=== PATIENT | male | born 1970 | race Caucasian/White ===

== ENCOUNTER 2023-01-06 02:51 | Emergency (ER) | payer MEDICAID ==
[~2023-01-06] VITALS: Ht 175.3 cm; Wt 65.9 kg
[2023-01-06 04:39] VITALS: BP 112/64
== END 2023-01-06 04:40 | disposition home or self-care (01) ==
LOC: EMS 02:56
DX: M70.21 Olecranon bursitis, right elbow (principal); M25.561 Pain in right knee
CPT/HCPCS: 99283

== ENCOUNTER 2023-01-08 20:30 | Emergency (ER) | payer MEDICAID ==
[~2023-01-08] VITALS: Ht 175.3 cm; Wt 63.6 kg
[2023-01-08 23:00] VITALS: BP 118/62
== END 2023-01-08 23:11 | disposition home or self-care (01) ==
LOC: EMS 20:34
DX: S50.01XA Contusion of right elbow, initial encounter (principal); M70.21 Olecranon bursitis, right elbow; Z98.890 Other specified postprocedural states; Z88.0 Allergy status to penicillin; V19.9XXA Pedal cyclist (driver) (passenger) injured in unspecified traffic accident, initial encounter; Y92.89 Other specified places as the place of occurrence of the external cause; Y93.89 Activity, other specified; Y99.8 Other external cause status
CPT/HCPCS: 99283

== ENCOUNTER 2023-01-19 04:14 | Emergency (ER) | payer MEDICAID ==
[~2023-01-19] VITALS: Ht 175.3 cm; Wt 64.0 kg
[2023-01-19 04:23] VITALS: BP 132/92
== END 2023-01-19 08:56 | disposition left against medical advice (07) ==
LOC: EMS 04:15
DX: M25.571 Pain in right ankle and joints of right foot (principal); Z53.21 Procedure and treatment not carried out due to patient leaving prior to being seen by health care provider
CPT/HCPCS: 99281; Z7502

== ENCOUNTER 2023-01-20 12:29 | Emergency (ER) | payer MEDICAID ==
[~2023-01-20] VITALS: Ht 177.8 cm; Wt 80.0 kg
[2023-01-20 12:39] VITALS: BP 148/96
[2023-01-21] MEDS ORDERED: IBUP-1492 PO (02:30)
[2023-01-21] MEDS ORDERED: DOXY-354 PO (02:30)
== END 2023-01-20 18:27 | disposition left against medical advice (07) ==
LOC: EMS 12:31
DX: L03.115 Cellulitis of right lower limb (principal); M25.561 Pain in right knee; Z88.0 Allergy status to penicillin
CPT/HCPCS: 99281; Z7502

== ENCOUNTER 2023-01-21 01:36 | Emergency (ER) | payer MEDICAID ==
[~2023-01-21] VITALS: Ht 175.3 cm; Wt 63.6 kg
[2023-01-21 01:37] VITALS: BP 130/82
[2023-01-21] MEDS ORDERED: ACETAMINOPHEN 500 MG TABLET PO ONE (02:30)
[2023-01-21] MEDS ORDERED: DOXY-354 PO (02:30)
[2023-01-21] MEDS ORDERED: IBUPROFEN 600 MG TABLET PO ONE (02:30)
[2023-01-21] MEDS ORDERED: DOXYCYCLINE HYCLATE 100 MG TABLET PO ONE (02:30)
[2023-01-21] MEDS ORDERED: IBUP-1492 PO (02:30)
== END 2023-01-21 02:52 | disposition home or self-care (01) ==
LOC: EMS 01:36
DX: L03.115 Cellulitis of right lower limb (principal); Z88.0 Allergy status to penicillin
CPT/HCPCS: 99284; Z7502; Z7610

== ENCOUNTER 2023-01-22 07:44 | Emergency (ER) | payer MEDICAID ==
[~2023-01-22] VITALS: Ht 177.8 cm; Wt 88.6 kg
[~2023-01-22 07:44] MED LIST: DOXY-354 PO; IBUP-1492 PO
[2023-01-22 11:23] VITALS: BP 125/80
== END 2023-01-22 11:27 | disposition home or self-care (01) ==
LOC: EMS 07:45
DX: L03.115 Cellulitis of right lower limb (principal); Z88.0 Allergy status to penicillin; Z98.890 Other specified postprocedural states
CPT/HCPCS: 99281; Z7502

== ENCOUNTER 2023-01-22 23:51 | Emergency (ER) | payer MEDICAID ==
[~2023-01-22] VITALS: Ht 177.8 cm; Wt 88.6 kg
[2023-01-23] MEDS ORDERED: IBUPROFEN 600 MG TABLET PO ONE (01:15)
[2023-01-23] MEDS ORDERED: ACETAMINOPHEN 500 MG TABLET PO ONE (01:15)
[2023-01-23 01:54] VITALS: BP 129/75
== END 2023-01-23 02:51 | disposition home or self-care (01) ==
LOC: EMS 23:53
DX: M25.561 Pain in right knee (principal); Z88.0 Allergy status to penicillin; Z98.890 Other specified postprocedural states
CPT/HCPCS: 99283

== ENCOUNTER 2023-01-24 03:35 | Emergency (ER) | payer MEDICAID ==
[~2023-01-24] VITALS: Ht 177.8 cm; Wt 88.0 kg
[2023-01-24 04:32] VITALS: BP 145/75
== END 2023-01-24 04:38 | disposition home or self-care (01) ==
LOC: EMS 03:36
DX: L03.115 Cellulitis of right lower limb (principal); Z88.0 Allergy status to penicillin
CPT/HCPCS: 99281; Z7502

== ENCOUNTER 2023-01-24 19:40 | Emergency (ER) | payer MEDICAID ==
[~2023-01-24] VITALS: Ht 177.8 cm; Wt 88.0 kg
[2023-01-24 20:02] VITALS: BP 129/78
[2023-01-24] MEDS ORDERED: IBUPROFEN 600 MG TABLET PO ONE (22:30)
== END 2023-01-24 22:36 | disposition home or self-care (01) ==
LOC: EMS 19:40
DX: M25.571 Pain in right ankle and joints of right foot (principal); F41.9 Anxiety disorder, unspecified; Z88.0 Allergy status to penicillin; Z59.00 Homelessness unspecified
CPT/HCPCS: 99281; Z7502

== ENCOUNTER 2023-03-01 03:42 | Emergency (ER) | payer MEDICAID ==
[~2023-03-01] VITALS: Ht 175.3 cm; Wt 70.0 kg
[2023-03-01] MEDS ORDERED: KETOROLAC TROMETHAMINE 60 MG/2 ML VIAL IM ONE (05:00)
[2023-03-01 05:45] VITALS: BP 124/64
== END 2023-03-01 05:47 | disposition home or self-care (01) ==
LOC: EMS 03:44
DX: M25.561 Pain in right knee (principal); Z98.890 Other specified postprocedural states; Z88.0 Allergy status to penicillin
CPT/HCPCS: 99283; 73562; 96372; J1885